=== PATIENT | male | born 1960 | race Caucasian/White ===

== ENCOUNTER 2024-01-29 11:00 | Outpatient (CLI) | payer OTHER, BC ==
[2024-01-29] VITALS (8 sets, daily range): BP systolic 148–165; BP diastolic 72–87; PULSE 71–83; RESP 16–18; O2SAT 95–97
[2024-01-29] MEDS: regadenoson 0.4mg/5ml syringe IV ONE (11:37)
== END 2024-01-29 23:00 | disposition home or self-care (01) ==
LOC: NM 11:00
PROVIDERS: ATTEND Internal Medicine Interventional Cardiology
DX: R06.02 Shortness of breath (principal)
CPT/HCPCS: 78452; 93017; A9500; J2785